=== PATIENT | male | born 1950 | race African-American/Black ===

== ENCOUNTER 2019-03-28 14:47 | Outpatient (CLI) | payer MEDICARE, OTHER ==
--- NOTE | 2019-03-29 19:00 | Consultation ---
DATE OF CONSULTATION: 03/29/2019 GASTROENTEROLOGY CONSULTATION CONSULTING PHYSICIAN: Livan Santiago M.D. CHIEF COMPLAINT: Referral for colon cancer followup. HISTORY OF PRESENT ILLNESS: This is a very pleasant 68-year-old male with past medical history of colon cancer diagnosed and the patient is here for one-year followup for colon cancer. PAST MEDICAL HISTORY: Other than colon cancer, none. PAST SURGICAL HISTORY: Partial colectomy. MEDICATIONS: None. ALLERGIES: None. FAMILY HISTORY: No family history of GI malignancies. SOCIAL HISTORY: The patient denies any alcohol use, but he smokes about half a pack per day. REVIEW OF SYSTEMS: A 10-point review of systems was performed and pertinent positives in HPI. PHYSICAL EXAMINATION: GENERAL: This is a well-developed male, in no acute distress. HEENT: Normocephalic, atraumatic. Sclerae anicteric. NECK: Supple. No evidence of obvious lymphadenopathy. CARDIOVASCULAR: Regular rate, rhythm. Plus S1, S2. No obvious murmur. LUNGS: Clear to auscultation bilaterally. ABDOMEN: Soft and nontender. No rebound. No guarding. No peritoneal sign. EXTREMITIES: No cyanosis. No clubbing. No edema. ASSESSMENT: This is a 68-year-old male with past medical history of colon cancer about a year ago, this followup annual exam. The patient was given instruction for colonoscopy. Risks and benefits of the procedure was explained to him. Prep was given to him. The patient will be scheduled for colonoscopy. Livan Santiago M.D. DR: DEVON JOB#: [id number] CC:
[2019-03-30] MEDS ORDERED: NO MEDICATION (09:18)
== END 2019-03-28 16:00 | disposition home or self-care (01) ==
LOC: PAN 14:47
DX: C18.9 Malignant neoplasm of colon, unspecified (principal); F17.210 Nicotine dependence, cigarettes, uncomplicated; Z85.038 Personal history of other malignant neoplasm of large intestine
CPT/HCPCS: G0463

== ENCOUNTER 2019-05-19 13:59 | Outpatient (CLI) | payer MEDICARE, OTHER ==
[~2019-05-19 13:59] MED LIST: NKM; NO MEDICATION
--- NOTE | 2019-05-19 15:03 | General Progress Note ---
Assessment/Plan Assessment/Plan: SUMMARY OF FINDINGS: 1. fair colonoscopy prep. 2. Total of three colonic polyps removed, see above for details. 3. Internal hemorrhoids. RECOMMENDATIONS: 1. path reviewed. 2. We recommend repeat colonoscopy in two years with a better prep. Subjective ROS Limited/Unobtainable: Yes Allergies: Coded Allergies: No Known Allergies (Unverified , 03/29/19) Objective General Appearance: alert EENT: normal ENT inspection Neck: supple Cardiovascular: normal rate Respiratory/Chest: decreased breath sounds Abdomen: normal bowel sounds, non tender, soft Extremities: non-tender Livan Santiago MD May 19, 2019 15:03
== END 2019-05-19 15:59 | disposition home or self-care (01) ==
LOC: PAN 13:59
DX: K63.5 Polyp of colon (principal); K64.8 Other hemorrhoids
CPT/HCPCS: 99212